=== PATIENT | female | born 1945 | race Caucasian/White ===

== ENCOUNTER 2023-07-14 09:39 | Day surgery (SDC) | payer OTHER ==
[2023-07-14 10:30] VITALS: BMI 32.2
[2023-07-14] MEDS ORDERED: LIDOCAINE HCL/PF 2% SDV 5ML VIAL ONE (12:50)
[2023-07-14 14:04] VITALS: TEMP 97.1
[2023-07-14 14:05] VITALS: RESP 20
[2023-07-14 14:07] VITALS: BP 140/68; PULSE 63
== END 2023-07-14 14:07 | disposition home or self-care (01) ==
LOC: FASU-ENDO 09:39
PROVIDERS: ATTEND Internal Medicine Gastroenterology
PROC: 0DBN8ZX Excision of Sigmoid Colon, Via Natural or Artificial Opening Endoscopic, Diagnostic (ICD-10-PCS; 2023-07-14)
PROC: 0DBM8ZX Excision of Descending Colon, Via Natural or Artificial Opening Endoscopic, Diagnostic (ICD-10-PCS; principal; 2023-07-14 12:52)
DX: Z12.11 Encounter for screening for malignant neoplasm of colon (principal); D12.4 Benign neoplasm of descending colon; K57.30 Diverticulosis of large intestine without perforation or abscess without bleeding; K64.1 Second degree hemorrhoids; Z86.010 Personal history of colon polyps

== ENCOUNTER 2023-10-06 09:30 | Day surgery (SDC) | payer OTHER ==
[2023-10-04 14:52] VITALS: BMI 31.8
[2023-10-06 09:57] VITALS: RESP 19
[2023-10-06] MEDS ORDERED: ONDANSETRON 4 MG/2 ML VIAL ONE (10:51)
[2023-10-06 11:17] VITALS: PULSE 72; TEMP 97.9
[2023-10-06 11:23] VITALS: BP 115/55
== END 2023-10-06 11:40 | disposition home or self-care (01) ==
LOC: FASU-ENDO 09:30
PROVIDERS: ATTEND Internal Medicine Gastroenterology
PROC: 0DB68ZX Excision of Stomach, Via Natural or Artificial Opening Endoscopic, Diagnostic (ICD-10-PCS; 2023-10-06)
PROC: 0DB48ZX Excision of Esophagogastric Junction, Via Natural or Artificial Opening Endoscopic, Diagnostic (ICD-10-PCS; 2023-10-06)
PROC: 0DB98ZX Excision of Duodenum, Via Natural or Artificial Opening Endoscopic, Diagnostic (ICD-10-PCS; principal; 2023-10-06 11:00)
DX: K31.7 Polyp of stomach and duodenum (principal); K31.89 Other diseases of stomach and duodenum; K20.90 Esophagitis, unspecified without bleeding; R10.13 Epigastric pain; R13.10 Dysphagia, unspecified